=== PATIENT | male | born 1950 | race African-American/Black ===

== ENCOUNTER 2018-06-18 09:53 | Emergency (ER) | payer MEDICARE, MEDICAID ==
[~2018-06-18] VITALS: Ht 172.7 cm; Wt 75.0 kg
[2018-06-18 09:56] VITALS: BP 0/0
[2018-06-18] MEDS ORDERED: HYDR-4133 PO (10:00)
[2018-06-18] MEDS ORDERED: ATOR10TA69 PO (10:00)
[2018-06-18] MEDS ORDERED: LOSA25TA12 PO (10:00)
[2018-06-18] MEDS ORDERED: EPINEPHRINE 0.1MG/ML (1:10,000) 10ML SYR ONE (10:09)
== END 2018-06-18 12:56 | disposition expired ==
LOC: ER 09:53
DX: I46.9 Cardiac arrest, cause unspecified (principal); I10 Essential (primary) hypertension; Z86.73 Personal history of transient ischemic attack (TIA), and cerebral infarction without residual deficits
CPT/HCPCS: 99285; J3490